=== PATIENT | male | born 1965 | race African-American/Black ===

== ENCOUNTER 2022-06-15 20:29 | Inpatient (IN) | payer OTHER ==
[~2022-06-15] VITALS: Ht 172.7 cm; Wt 62.5 kg
[2022-06-15] MEDS ORDERED: ONDANSETRON HCL 4MG/2ML INJ IV STA (21:06)
[2022-06-15] MEDS ORDERED: PANTOPRAZOLE SODIUM 40 MG/VIAL IV STA (21:06)
[2022-06-15] MEDS ORDERED: SODIUM CHLORIDE 0.9% 1,000 ML IV ONE (21:15)
[2022-06-15 21:58] LABS: HEMATOCRIT. 31.2 % (42.0-52.0); HEMOGLOBIN. 10.3 g/dL (14.0-18.0); RED BLOOD CELL COUNT 3.37 mill/uL (4.7-6.1)
[2022-06-15 21:59] LABS: BASOPHILS % 0.1 % (0.0-2.0); EOSINOPHILS % 0.4 % (0.0-5.0); MEAN CORPUSCULAR HEMOGLOBIN 30.5 pg (28.0-32.0); MEAN CORPUSCULAR VOLUME 92.4 fL (80.0-94.0); MEAN PLATELET VOLUME 8.4 fl (7.4-10.4); MONOCYTES % 12.4 % (2.0-8.0); NEUTROPHILS % 74.1 % (40.0-76.0); PLATELET 213 x1000/uL (130-400); RED CELL DISTRIBUTION WIDTH 13.6 % (11.6-14.6)
[2022-06-15 22:03] LABS: CHLORIDE 106 mEq/L (98-107)
[2022-06-15 22:04] LABS: INR 1.1
[2022-06-16 04:30] VITALS: BP 110/72
[2022-06-16] MEDS ORDERED: valtrex PO (04:47)
[2022-06-16] MEDS ORDERED: ACET-2708 PO (04:48)
[2022-06-16] MEDS ORDERED: METH-773 PO (04:48)
[2022-06-16 04:52] VITALS: BP 110/72
[2022-06-16] MEDS ORDERED: ONDANSETRON HCL 4MG/2ML INJ IV PRN (06:30)
[2022-06-16] MEDS: PANTOPRAZOLE SODIUM 40 MG/VIAL IV SCH (06:54)
[2022-06-16] MEDS: DEXT 5%/0.45% NACL 1000ML 1,000 ML IV SCH ×2 (06:54→22:08)
[2022-06-16 08:45] VITALS: BP 100/57
[2022-06-16] MEDS ORDERED: KETOROLAC 15MG/ML VIAL IV PRN (09:45)
[2022-06-16] MEDS ORDERED: NALOXONE HCL 0.4MG/ML VIAL IV PRN (10:00)
[2022-06-16] MEDS: HYDROMORPHONE HCL/PF 2MG/ML CPJ IV PRN (10:44)
[2022-06-16 12:00] VITALS: BP 99/64
[2022-06-16] MEDS ORDERED: DIATR MEGLU/DIATRIZOATE SOLN 30ML PO SCH (12:45)
[2022-06-16] MEDS: TRAMADOL 50MG TABLET PO PRN ×2 (15:57→22:07)
[2022-06-16 16:00] VITALS: BP 120/74
[2022-06-16 16:11] LABS: BASOPHILS % 0.4 % (0.0-2.0); EOSINOPHILS % 2.7 % (0.0-5.0); HEMOGLOBIN. 10.8 g/dL (14.0-18.0); LYMPHOCYTES % 32.6 % (20.0-50.0); MEAN CORPUSCULAR HEMOGLOBIN 31.4 pg (28.0-32.0); MEAN CORPUSCULAR VOLUME 92.8 fL (80.0-94.0); MEAN PLATELET VOLUME 8.8 fl (7.4-10.4); MONOCYTES % 12.7 % (2.0-8.0); NEUTROPHILS % 51.6 % (40.0-76.0); PLATELET 202 x1000/uL (130-400); RED BLOOD CELL COUNT 3.45 mill/uL (4.7-6.1); RED CELL DISTRIBUTION WIDTH 13.9 % (11.6-14.6)
[2022-06-16 16:40] LABS: CHLORIDE 102 mEq/L (98-107)
[2022-06-16 16:50] LABS: TOTAL IRON BINDING CAPACITY 218 ug/dL (250-450)
[2022-06-16 17:00] LABS: FERRITIN 149 ng/mL (22-322)
[2022-06-16 17:17] LABS: VITAMIN B12 SERUM 526 pg/mL (211-911)
[2022-06-16 20:50] VITALS: BP 119/76
[2022-06-17] VITALS: BP 118/77
[2022-06-17 04:00] VITALS: BP 119/60
[2022-06-17] MEDS: TRAMADOL 50MG TABLET PO PRN ×2 (04:18→20:14)
[2022-06-17 08:00] VITALS: BP 103/62
[2022-06-17 08:07] LABS: BASOPHILS % 0.2 % (0.0-2.0); EOSINOPHILS % 2.1 % (0.0-5.0); HEMOGLOBIN. 8.9 g/dL (14.0-18.0); LYMPHOCYTES % 19.8 % (20.0-50.0); MEAN CORPUSCULAR HEMOGLOBIN 31.5 pg (28.0-32.0); MEAN PLATELET VOLUME 8.3 fl (7.4-10.4); MONOCYTES % 10.1 % (2.0-8.0); NEUTROPHILS % 67.8 % (40.0-76.0); PLATELET 176 x1000/uL (130-400); RED BLOOD CELL COUNT 2.83 mill/uL (4.7-6.1); RED CELL DISTRIBUTION WIDTH 13.4 % (11.6-14.6)
[2022-06-17 08:41] LABS: CHLORIDE 100 mEq/L (98-107)
[2022-06-17 09:03] LABS: HDL CHOLESTEROL 32 mg/dL (40-59); LDL CHOLESTEROL 58 mg/dL (5-100)
[2022-06-17] MEDS: PANTOPRAZOLE SODIUM 40 MG/VIAL IV SCH (09:17)
[2022-06-17] MEDS: DEXT 5%/0.45% NACL 1000ML 1,000 ML IV SCH ×2 (09:18→23:00)
[2022-06-17 12:00] VITALS: BP 96/68
[2022-06-17 16:00] VITALS: BP 105/66
[2022-06-17 20:00] VITALS: BP 112/65
[2022-06-17 22:09] LABS: BASOPHILS % 0.4 % (0.0-2.0); EOSINOPHILS % 2.5 % (0.0-5.0); HEMATOCRIT. 26.1 % (42.0-52.0); HEMOGLOBIN. 8.8 g/dL (14.0-18.0); LYMPHOCYTES % 20.1 % (20.0-50.0); MEAN CORPUSCULAR HEMOGLOBIN 31.3 pg (28.0-32.0); MEAN CORPUSCULAR VOLUME 92.6 fL (80.0-94.0); MEAN PLATELET VOLUME 8.8 fl (7.4-10.4); MONOCYTES % 13.9 % (2.0-8.0); NEUTROPHILS % 63.1 % (40.0-76.0); PLATELET 189 x1000/uL (130-400); RED BLOOD CELL COUNT 2.82 mill/uL (4.7-6.1); RED CELL DISTRIBUTION WIDTH 13.6 % (11.6-14.6)
[2022-06-17 22:24] LABS: CHLORIDE 102 mEq/L (98-107)
[2022-06-18] VITALS (9 sets, daily range): BP systolic 97–121; BP diastolic 52–69
[2022-06-18] MEDS: PANTOPRAZOLE SODIUM 40 MG/VIAL IV SCH (09:39)
[2022-06-18 12:05] LABS: BASOPHILS % 0.3 % (0.0-2.0); EOSINOPHILS % 0.8 % (0.0-5.0); HEMOGLOBIN. 7.1 g/dL (14.0-18.0); LYMPHOCYTES % 21.9 % (20.0-50.0); MEAN CORPUSCULAR HEMOGLOBIN 31.1 pg (28.0-32.0); MEAN CORPUSCULAR VOLUME 92.2 fL (80.0-94.0); MEAN PLATELET VOLUME 8.6 fl (7.4-10.4); MONOCYTES % 10.7 % (2.0-8.0); NEUTROPHILS % 66.3 % (40.0-76.0); PLATELET 195 x1000/uL (130-400); RED BLOOD CELL COUNT 2.28 mill/uL (4.7-6.1); RED CELL DISTRIBUTION WIDTH 13.7 % (11.6-14.6)
[2022-06-18] MEDS: DEXT 5%/0.45% NACL 1000ML 1,000 ML IV SCH ×2 (12:05→23:55)
[2022-06-18 12:06] LABS: PROTHROMBIN TIME 10.8 sec (9.6-11.0)
[2022-06-18] MEDS: HYDROMORPHONE HCL/PF 2MG/ML CPJ IV PRN (12:12)
[2022-06-18 12:49] LABS: CHLORIDE 103 mEq/L (98-107)
[2022-06-18] MEDS ORDERED: EPHEDRINE SULFATE 50MG/ML VIAL ONE (12:56)
[2022-06-18] MEDS ORDERED: PROPOFOL 200MG/20ML VIAL IV ONE (12:58)
[2022-06-18] MEDS ORDERED: SODIUM CHLORIDE 0.9% 500 ML IV ONE (13:15)
[2022-06-19] VITALS (8 sets, daily range): BP systolic 98–118; BP diastolic 55–68
[2022-06-19] MEDS: ACETAMINOPHEN 325MG TABLET PO PRN ×2 (00:03→06:03)
[2022-06-19 08:01] LABS: BASOPHILS % 0.5 % (0.0-2.0); EOSINOPHILS % 1.5 % (0.0-5.0); HEMATOCRIT. 25.9 % (42.0-52.0); MEAN CORPUSCULAR HEMOGLOBIN 31.5 pg (28.0-32.0); MEAN CORPUSCULAR VOLUME 90.3 fL (80.0-94.0); MEAN PLATELET VOLUME 8.3 fl (7.4-10.4); MONOCYTES % 11.1 % (2.0-8.0); NEUTROPHILS % 61.9 % (40.0-76.0); PLATELET 190 x1000/uL (130-400); RED BLOOD CELL COUNT 2.86 mill/uL (4.7-6.1); RED CELL DISTRIBUTION WIDTH 14.2 % (11.6-14.6)
[2022-06-19 08:06] LABS: INR 1.1; PROTHROMBIN TIME 11.4 sec (9.6-11.0)
[2022-06-19] MEDS: PANTOPRAZOLE SODIUM 40 MG/VIAL IV SCH ×2 (09:01→18:22)
[2022-06-19 09:27] LABS: PROSTRATE SPECIFIC AG TOTAL 0.67 ng/mL (0.0-4.0)
[2022-06-19 09:28] LABS: CHLORIDE 106 mEq/L (98-107)
[2022-06-19] MEDS: DEXT 5%/0.45% NACL 1000ML 1,000 ML IV SCH ×2 (10:14→21:44)
[2022-06-19 10:26] LABS: CARCINO EMBRYONIC ANTIGEN < 0.5 ng/ml
[2022-06-19 13:06] LABS: HEMATOCRIT 25.2 % (42.0-52.0); HEMOGLOBIN 8.7 g/dL (14.0-18.0)
[2022-06-19] MEDS ORDERED: MIDAZOLAM HCL 2 MG/2 ML VIAL ONE (15:13)
[2022-06-19] MEDS ORDERED: DEXAMETHASONE 4MG/ML 1ML VIAL ONE (15:16)
[2022-06-19] MEDS ORDERED: PROPOFOL 200MG/20ML VIAL IV ONE ×2 (15:26→15:41)
[2022-06-19] MEDS ORDERED: LIDOCAINE HCL 1% 10 MG/ML 10ML VIAL ONE (15:28)
[2022-06-19] MEDS: SUCRALFATE 1 G/10 ML UDC PO SCH ×2 (18:22→21:43)
[2022-06-19 18:31] LABS: HEMATOCRIT 24.2 % (42.0-52.0); HEMOGLOBIN 8.3 g/dL (14.0-18.0)
[2022-06-19] MEDS: TRAMADOL 50MG TABLET PO PRN (21:44)
[2022-06-20] VITALS: BP 108/63
[2022-06-20 01:12] LABS: HEMATOCRIT 23.6 % (42.0-52.0); HEMOGLOBIN 7.9 g/dL (14.0-18.0)
[2022-06-20 04:00] VITALS: BP 104/59
[2022-06-20] MEDS: DEXT 5%/0.45% NACL 1000ML 1,000 ML IV SCH ×2 (05:23→16:51)
[2022-06-20] MEDS: SUCRALFATE 1 G/10 ML UDC PO SCH ×4 (05:23→20:29)
[2022-06-20] MEDS: PANTOPRAZOLE SODIUM 40 MG/VIAL IV SCH ×2 (05:23→17:26)
[2022-06-20 08:00] VITALS: BP 102/61
[2022-06-20 11:31] LABS: HEMOGLOBIN 7.8 g/dL (14.0-18.0)
[2022-06-20 11:33] LABS: BASOPHILS % 0.2 % (0.0-2.0); EOSINOPHILS % 0.7 % (0.0-5.0); HEMATOCRIT. 23.4 % (42.0-52.0); HEMOGLOBIN. 7.8 g/dL (14.0-18.0); LYMPHOCYTES % 20.7 % (20.0-50.0); MEAN CORPUSCULAR HEMOGLOBIN 30.7 pg (28.0-32.0); MONOCYTES % 14.9 % (2.0-8.0); NEUTROPHILS % 63.5 % (40.0-76.0); PLATELET 226 x1000/uL (130-400); RED BLOOD CELL COUNT 2.54 mill/uL (4.7-6.1); RED CELL DISTRIBUTION WIDTH 14.3 % (11.6-14.6)
[2022-06-20 11:59] LABS: CHLORIDE 104 mEq/L (98-107)
[2022-06-20 12:00] VITALS: BP 110/60
[2022-06-20 16:00] VITALS: BP 107/60
[2022-06-20 20:00] VITALS: BP 104/64
[2022-06-20] MEDS: TRAMADOL 50MG TABLET PO PRN (20:30)
[2022-06-20 21:43] LABS: HEMATOCRIT 23.7 % (42.0-52.0)
[2022-06-21] VITALS: BP 119/65
[2022-06-21] MEDS: DEXT 5%/0.45% NACL 1000ML 1,000 ML IV SCH ×2 (03:45→14:17)
[2022-06-21 04:00] VITALS: BP 103/54
[2022-06-21 05:09] LABS: CHLORIDE 105 mEq/L (98-107)
[2022-06-21 05:49] LABS: BASOPHILS % 0.5 % (0.0-2.0); EOSINOPHILS % 1.5 % (0.0-5.0); HEMATOCRIT. 23.2 % (42.0-52.0); HEMOGLOBIN. 7.7 g/dL (14.0-18.0); LYMPHOCYTES % 30.3 % (20.0-50.0); MEAN CORPUSCULAR HEMOGLOBIN 30.7 pg (28.0-32.0); MEAN PLATELET VOLUME 8.1 fl (7.4-10.4); MONOCYTES % 12.2 % (2.0-8.0); NEUTROPHILS % 55.5 % (40.0-76.0); PLATELET 228 x1000/uL (130-400); RED BLOOD CELL COUNT 2.52 mill/uL (4.7-6.1); RED CELL DISTRIBUTION WIDTH 14.1 % (11.6-14.6)
[2022-06-21] MEDS: SUCRALFATE 1 G/10 ML UDC PO SCH ×2 (06:26→14:16)
[2022-06-21] MEDS: PANTOPRAZOLE SODIUM 40 MG/VIAL IV SCH (06:26)
[2022-06-21 06:50] VITALS: BP 103/54
[2022-06-21 08:00] VITALS: BP 104/65
[2022-06-21 12:25] LABS: HEMOGLOBIN 8.7 g/dL (14.0-18.0); MEAN CORPUSCULAR HEMOGLOBIN 31.3 pg (28.0-32.0); MEAN CORPUSCULAR VOLUME 93.6 fL (80.0-94.0); PLATELET 250 x1000/uL (130-400); RED BLOOD CELL COUNT 2.78 mill/uL (4.7-6.1); RED CELL DISTRIBUTION WIDTH 14.5 % (11.6-14.6)
[2022-06-21 15:51] VITALS: BP 120/70
== END 2022-06-21 17:51 | disposition home or self-care (01) | DRG 377 ==
LOC: ER 20:29 → MICUSO 06-16 00:59 → EDBEDREQ 06-16 01:11 → ENRESERV 06-16 02:52 → 6WST 06-16 04:05
PROVIDERS: ADMIT Hospitalist; ATTEND Hospitalist
PROC: 30233N1 Transfusion of Nonautologous Red Blood Cells into Peripheral Vein, Percutaneous Approach (ICD-10-PCS; 2022-06-18)
PROC: 0DB78ZX Excision of Stomach, Pylorus, Via Natural or Artificial Opening Endoscopic, Diagnostic (ICD-10-PCS; principal; 2022-06-20)
PROC: 3E0G8GC Introduction of Other Therapeutic Substance into Upper GI, Via Natural or Artificial Opening Endoscopic (ICD-10-PCS; 2022-06-20)
DX: K26.4 Chronic or unspecified duodenal ulcer with hemorrhage (principal); R57.1 Hypovolemic shock; D62 Acute posthemorrhagic anemia; I24.8 Other forms of acute ischemic heart disease; K56.609 Unspecified intestinal obstruction, unspecified as to partial versus complete obstruction; A60.02 Herpesviral infection of other male genital organs; E83.51 Hypocalcemia; I95.1 Orthostatic hypotension; E88.09 Other disorders of plasma-protein metabolism, not elsewhere classified; J45.909 Unspecified asthma, uncomplicated; Z20.822 Contact with and (suspected) exposure to COVID-19; R63.4 Abnormal weight loss; D72.829 Elevated white blood cell count, unspecified; K57.30 Diverticulosis of large intestine without perforation or abscess without bleeding; K29.70 Gastritis, unspecified, without bleeding; R73.03 Prediabetes; Z91.010 Allergy to peanuts; Z68.21 Body mass index [BMI] 21.0-21.9, adult
CPT/HCPCS: 36415; 71045; 74176; 80048; 80053; 80061; 82105; 82270; 82378; 82607; 82728; 82746; 82962; 83540; 83550; 83605; 83735; 84153; 84484; 85014; 85018; 85025; 85027; 85044; 86850; 86900; 86920; 87426; 88305; 93005; 93306; 99291; C9113; J1100; J1170; J2250; J2405; J2704; J3490; J7030; P9016; Q9963; G0103